=== PATIENT | male | born 1995 | race African-American/Black ===

== ENCOUNTER 2020-11-09 15:44 | Emergency (ER) | payer SELFPAY ==
[~2020-11-09] VITALS: Ht 185.4 cm; Wt 90.0 kg
[~2020-11-09 15:44] MED LIST: ALBU6.7H11 INH
[2020-11-09 16:17] VITALS: BP 99/52
== END 2020-11-09 16:54 | disposition home or self-care (01) ==
LOC: ER 15:44
DX: Z48.00 Encounter for change or removal of nonsurgical wound dressing (principal); J45.909 Unspecified asthma, uncomplicated; Z87.828 Personal history of other (healed) physical injury and trauma; Z98.890 Other specified postprocedural states
CPT/HCPCS: 99281; Z7610